=== PATIENT | male | born 1960 | race Caucasian/White ===

== ENCOUNTER 2019-08-09 00:42 | Day surgery (SDC) | payer MEDICARE, SELFPAY ==
[2019-07-26 15:40] VITALS: BMI 34.8
--- NOTE | 2019-08-08 06:22 | HP_ITS ---
DATE OF SERVICE: 08/09/2019 ADMITTING DIAGNOSIS: Rotator cuff tear, left shoulder. HISTORY OF PRESENT ILLNESS: The patient is a 59-year-old male patient of Dr. Gan, who presents today for left shoulder arthroscopy with mini-open rotator cuff repair of his left shoulder. He has been having symptoms in his left shoulder for the past 6 to 7 years, progressively worsening. He was initially evaluated by Dr. Vanegas in December 2018, at that time, he had an MRI scan that was done from the same month, which demonstrated pronounced thinning of the supraspinatus tendon and most likely a small thickness rotator cuff tear in the shoulder. He has been treating this nonsurgically over the course of last 6 months. Unfortunately, he has not had significant improvement of his symptoms. He still has pain on a regular basis and feels at this point, he would like to proceed with surgical intervention rather than continue nonsurgical treatment. The patient has had no previous surgeries. CURRENT MEDICATIONS: 1. Naprosyn 500 mg daily. 2. Losartan 100 mg daily. 3. Citalopram 40 mg daily. 4. Clonazepam 5 mg daily. 5. Pantoprazole 40 mg daily. 6. Simvastatin 40 mg daily. 7. Trazodone 50 mg q.h.s. 8. Zolpidem 10 mg daily. ALLERGIES: HE HAS NO KNOWN DRUG ALLERGIES. FAMILY HISTORY: Noncontributory. SOCIAL HISTORY: He has smoked in the past. He quit in 2000. SURGERIES: Noted above. Please note, he has had his appendix removed in the past and does have a history of diverticulitis. OBJECTIVE: VITAL SIGNS: He is 5 feet 11 inches, 264 pounds. His BMI is 36.9. Other vital signs per nursing on the morning of surgery. HEENT: Grossly normal. LUNGS: Clear bilaterally. HEART: Regular rate and rhythm. NEURO: His left shoulder, he has elevation of 180, external rotation 90, internal rotation is to T12 as well. He has mild weakness with both external rotation as well as abduction. He has minimal tenderness over the AC joint. No pain with adduction of the shoulder. He has a negative speed's maneuver. Negative belly press. Negative subscap lift-off on his left arm. Moderate tenderness over the supraspinatus tendon insertion. Biceps muscle has normal contour. Neck range of motion is full without discomfort. Negative Spurling's maneuver. 2+ radial pulse in his left wrist. IMAGING DATA: MRI scan again shows a fairly large area of bursal-sided partial-thickness tearing involving the posterior supraspinatus tendon and upper infraspinatus tendon with a small full-thickness tear laterally. There is thinning of the tendon diffusely. Mild atrophy of the infraspinatus muscle is noted. There is no edema or significant hypertrophic changes of the AC joint. IMPRESSION AND PLAN: The patient has had continued symptoms in his left shoulder, he has significant partial thickness and most likely a small full-thickness rotator cuff tear. Again, he would like to proceed with surgery. Surgical procedure as well as risks complications were discussed. All questions were answered and we will proceed. The patient will avoid his Naprosyn and any other aspirin and ibuprofen products 1 week prior to surgery. He will see his primary care doctor for presurgical clearance. Porfirio I MT: Monica
[2019-08-09] VITALS (7 sets, daily range): BP systolic 112–121; BP diastolic 63–81; PULSE 66–87; RESP 14–19; TEMP 36.1–36.2; O2SAT 92–96
[2019-08-09] MEDS: LACTATED RINGERS 1,000 ML 30 ML IV CONT ×2 (11:30→16:55)
--- NOTE | 2019-08-09 12:08 | WPDANESEPPF ---
Anes - Initial Pre Proc Eval Procedure: Operation Date: 08/09/19 12:30 Proposed Procedures p Left Shoulder Arthroscopy, Acromioplasty, Mini Open Rotator Cuff Repair, Possible Tissue Mend Patch, Proceed As Indicated - Levi Vanegas MD Date/Time: 08/09/19 12:08 Surgeon: Levi Vanegas MD Pre Op Diagnosis: Left Shoulder Rotator Cuff Tear Patient Data Age: 59 Gender: M Height: 5 ft 11 in Weight: 105.9 kg Last Vital Signs Temp 36.2 C L 08/09/19 11:30 Pulse 66 08/09/19 11:30 Resp 16 08/09/19 11:30 BP 120/73 08/09/19 11:30 Pulse Ox 95 08/09/19 11:30 Allergies Allergy/AdvReac Type Severity Reaction Status Date / Time No Known Allergies Allergy Mild Verified 08/09/19 11:58 Home Medications Medication Instructions Recorded Confirmed Type Cinnamon 1 cap PO DAILY 07/26/19 07/26/19 History baclofen 20 mg PO HS 07/26/19 07/26/19 History citalopram [Celexa] 40 mg PO DAILY 07/26/19 08/09/19 History clonazepam 0.5 mg PO DAILY PRN 07/26/19 08/09/19 History hydrocodone-acetaminophen [[place]] 1 tablet PO BID PRN 07/26/19 07/26/19 History latanoprost 1 drp OPHTHALMIC (EYE) HS 07/26/19 07/26/19 History losartan 50 mg PO QPM 07/26/19 07/26/19 History milk thistle 150 mg PO DAILY 07/26/19 07/26/19 History multivitamin 1 tablet PO DAILY 07/26/19 07/26/19 History naproxen 500 mg PO DAILY 07/26/19 07/26/19 History olanzapine 5 mg PO DAILY 07/26/19 08/09/19 History pantoprazole 40 mg PO HS 07/26/19 07/26/19 History simvastatin 40 mg PO DAILY 07/26/19 07/26/19 History trazodone 50 mg PO HS 07/26/19 07/26/19 History vitamin B complex 1 tablet PO DAILY 07/26/19 07/26/19 History zolpidem [Ambien] 5 - 10 mg PO HS 07/26/19 07/26/19 History Patient hx anesthesia problems: none Family hx anesthesia problems: none PMF Past Medical History Medical History Anxiety Bipolar 1 disorder GERD (gastroesophageal reflux disease) Hyperlipidemia Hypertension Family History Family History Other Family history of cardiovascular disease Family history of elevated blood lipids Social History Social History Alcohol intake: current Anes - Eval Final PreProcedure Day of Procedure 08/09/19 12:08 Patient weight: obese Heart: regular rate and rhythm Lungs: clear to auscultation Airway: Mallampati scale class II Neurological: alert and oriented Last oral intake: >/= 8 hours ASA classification: III Emergent: no Anesthetic plan: proceed Anesthesia type and monitoring: general ETT and standard monitoring Informed Consent: The patient's anesthetic plan and its attendant risks and benefits were discussed with the patient/family/POA. Questions were solicited and answers provided to the satisfaction of the patient/family/POA.
--- NOTE | 2019-08-09 12:18 | WPDHPUPDATE1 ---
History and Physical Update Update Date/Time: 08/09/19 12:18 History and Physical has been reviewed, including an updated exam of the patient. There are NO changes in the patient's condition. Risks, benefits, and alternatives have been discussed and questions answered. Patient agrees to proceed with procedure.
--- NOTE | 2019-08-09 12:45 | WPDANESPNB ---
Anes - Peripheral Nerve Block Date/Time: 08/09/19 12:45 I have discussed with the patient/family/POA the placement of a peripheral nerve block for post-operative pain management, including associated risks, benefits, complications, and side effects. Alternative methods of post-operative analgesia were detailed. Questions were solicited and answers provided to the satisfaction of the patient/family/POA. Time-Out: A pre-procedural Time-Out was completed immediately before starting the procedure and confirmed: Patient Identification, Site, Procedure, Patient Position and the Availability of Requisite Equipment. Clinical Indications: Acute post-operative pain management requested by the operative surgeon. Nerve Block Insertion Note Anes-nerve block: interscalene left Patient position: supine Skin prep: chlorhexidine Needle: 22 gauge, stimulating, insulated echogenic needle. Needle length: 50 mm Technique: ultrasound Technique comment: visualization poor. unable to visualize nerve roots. 30ml local placed in interscalene groove. Injectate: bupivacaine 0.5% with epi 5 mcg/ml (30ml) Observations: tolerated well Complications: none Procedure start time:: 1230 Procedure end time:: 1244
[2019-08-09] MEDS: ceFAZolin 2 GM/D5W 50 ML 2 GM/50 ML BAG IVPB (12:56)
[2019-08-09] MEDS: VANCOMYCIN HCL 1,000 MG VIAL 1000 MG XX (13:46)
[2019-08-09] MEDS: ceFAZolin SODIUM 1 GM VIAL IV PUSH (16:22)
--- NOTE | 2019-08-09 17:04 | PM.PROC ---
Procedure Note - Detailed Date of procedure: 08/09/19 Pre-op diagnosis: Left Shoulder Rotator Cuff Tear Post-op diagnosis: same Procedure performed: Arthroscopic labral debridement acromioplasty mini open rotator cuff repair left shoulder with repair augmentation using the arthro flex Decellularized dermis Description of procedure: Patient was brought to the operating room and the general anesthesia was administered. He received an interscalene block preoperatively. He received weight based vancomycin and 2 g of Ancef preoperatively. He was placed in the beach chair position the head secured in neutral alignment the left shoulder prepped draped usual fashion. His range of motion was normal. all the skin was covered with diabetics at the top portion. Posterior portal was placed into the glenohumeral joint. The articular surfaces looked normal except for moderate fibrillation of the anterior superior lateral aspect of the humeral head under where he had the rotator cuff tear. long of the biceps had a little bit of synovitis minutes under surface near the glenoid origin but the tendon itself looked completely normal. It was probed into the joint found to be without any fraying. The medial ajith of the biceps sling looked normal. the subscapularis looked normal. It was visualized at the insertion with the lever push test. The articular surface of glenoid looked normal. There was extensive fraying of the superior labrum anterior to posterior and this was debrided with a motorized shaver. The labrum was essentially membranous. Rotator cuff tear of the supraspinatus full thickness was viewed. Arthroscope placed in the subacromial space. was extensive fraying of the CA ligament and its attachment onto the anterior acromion. an anterior portal was placed. this was for outflow. The mid lateral portal place. the CA ligament was carefully ablated off the anterior acromion and a concern of an anterior acromioplasty removing about 3 mm of bone was performed using cutting block technique with the vortex bur in the posterior portal. The shoulder was covered with IO band however gloves were changed. A 2 inch longitudinal incision was made from the anterior superior acromion and the tendinous right FA was identified between the anterior middle heads of the deltoid and split for a distance of 40 0.5 cm. We elevated about 5 mm of deltoid off the anterior chromium and were additional exposure of the soft tissue attachments place 1st the tear was as seen on the previous MRI scan from last year. There is a full-thickness central portion and a more extensive high-grade partial thickness portion that Reamer with full thickness tear was surrounded by very thin tendinous tissue. the greater tuberosity footprint was carefully debrided. A 2 mm bur was made to make 1 mill used to make 1 mm dimples and then used to make per holes through the medial aspect of the greater tuberosity footprint adjacent to articular cartilage for later passing sutures. the tear extended medially about 2-1/2 cm [place] is after gently mobilizing the tendon edges releases deltoid distal adhesions and placing a stay suture in the anterior and the posterior flaps it became clear that the primary mode of reduction of the plate tear was going to be a [id number] closure. there was somewhat of an L configuration so the posterior flap which included much the supraspinatus and the infraspinatus tendons on was retracted not just posteriorly but somewhat medially to the side the side reduction occurred with some lateralization of the posterior flap well advancing it anteriorly and centrally complete closure of the rotator cuff tear was carried out by placing 4 2. Ethibonds in a [id number] fashion. even with healthy bites the tissue seemed to be abnormally thin. In the cm radius around the tear the tendon thickness increased screw 10 mm to 3 mm but much thinner than normal for this 59-year-old large male. Additional 5 2. Ethibonds were
== END 2019-08-09 18:30 | disposition home or self-care (01) ==
PROVIDERS: PCP Family Medicine; Visit Provider Orthopaedic Surgery
PROC: (CPT 29805; principal; 2019-08-09 12:30)
DX: M75.102 Unspecified rotator cuff tear or rupture of left shoulder, not specified as traumatic (principal); G89.18 Other acute postprocedural pain; I10 Essential (primary) hypertension; E78.5 Hyperlipidemia, unspecified; K21.9 Gastro-esophageal reflux disease without esophagitis; F41.8 Other specified anxiety disorders; F31.9 Bipolar disorder, unspecified; Z68.32 Body mass index [BMI] 32.0-32.9, adult
CPT/HCPCS: 23412; 29823; 64415; A4565; J0131; J0330; J0690; J1100; J1170; J2250; J2370; J2405; J2710; J3010; J3370; J7120

== ENCOUNTER 2022-01-25 19:06 | Emergency (ER) | payer MEDICARE, MEDICAID, SELFPAY ==
--- NOTE | ~2022-01-25 | CT_ITS ---
EXAMINATION: CT abdomen pelvis w con DATE: 01/25/2022 22:30 INDICATION: abdominal pain TECHNIQUE: Computed tomography (CT) of the abdomen and pelvis was performed with 100 mL Omnipaque-300 intravenous contrast. Automated exposure control and iterative reconstruction technique were employe d. The dose-length product was 1451.12 mGy-cm. COMPARISON: 08/26/2016.. FINDINGS: Lower thorax: Unremarkable Liver: Steatosis. Biliary/Gallbladder: Partially contracted gallbladder. No bile duct dilation. Pancreas: No mass or duct dilation. Spleen: Normal. Adrenals:No mass. Kidneys: Bilateral renal cortical scarring and perinephric stranding. Simple left renal cyst. GI tract: No small or large bowel dilation. Appendix not visualized Diverticulosis without diverticul itis. Mesentery/Peritoneum: No ascites, mass, or free air. Retroperitoneum: No mass. Atherosclerotic abdominal aortic and/or arterial calcifications. Pelvis: Distended bladder with mild wall thickening likely due to outlet compromise from prostatomega ly.. Soft Tissues: Small fat-containing bilateral inguinal hernias. Bones: No acute osseous finding. IMPRESSION: No acute abdominopelvic process detected. Reviewed, dictated and finalized at location K.
[2022-01-25 19:17] VITALS: BP 155/103; PULSE 77; RESP 18; TEMP 36.4; O2SAT 97
[2022-01-25 19:34] LABS: Basophils Absolute Auto 0.1 K/mm3 (0.0-0.1); Basophils Percent Auto 0.7 % (0.2-1.2); Eosinophils Absolute Auto 0.1 K/mm3 (0-0.3); Hematocrit 41.4 % (42.0-52.0); Hemoglobin 13.5 g/dL (14.0-18.0); Immature Granulocyte Absolute 0.02 K/mm3 (0.00-0.031); Immature Granulocyte Percent A 0.3 % (0-0.5); Lymphocytes Absolute Auto 3.16 K/mm3 (0.9-3.2); Lymphocytes Percent Auto 41.2 % (18.3-44.2); Mean Corpuscular HGB Conc 32.6 g/dl (32-36); Mean Corpuscular Hemoglobin 30.1 pg (26-34); Mean Corpuscular Volume 92.2 fl (80-100); Mean Platelet Volume 9.6 fl (7.4-10.4); Monocytes Absolute Auto 0.9 K/mm3 (0.1-0.6); Monocytes Percent Auto 11.9 % (2.6-8.5); Neutrophils Absolute Auto 3.5 K/mm3 (1.3-6.7); Neutrophils Percent Auto 44.9 % (45.5-73.1); Platelet Count Result 221 k/mm3 (150-375); Red Blood Count 4.49 M/mm3 (4.6-6.20); Red Cell Distribution Width 13.6 % (11.5-14.5); White Blood Count 7.7 K/mm3 (4.5-10.0)
[2022-01-25 19:38] LABS: Appearance Urine Clear (Clear); Bilirubin Urine Negative (Negative); Glucose Urine UA Negative (Negative); Ketones Urine Negative (Negative); Leukocyte Esterase Ur Negative LEU/UL (Negative); Nitrate Urine Negative (Negative); Protein Urine Negative (Negative); Urobilinogen Urine 0.2 mg/dL (<2.0)
[2022-01-25 19:42] LABS: Add Urine Microscopic? YES; Blood Urine Trace-Intact (Negative); Color Urine Light Yellow (Yellow)
[2022-01-25 19:43] LABS: Mucus Urine Rare /lpf; RBC Urine 0-2 /hpf (0-2); WBC Urine 0-3 /hpf
[2022-01-25 20:55] LABS: Alanine Aminotransferase 31 U/L (6-50); Albumin Level 4.4 g/dL (3.5-5.1); Alkaline Phosphatase 95 U/L (38-126); Anion Gap 6 mmol/L (8-16); Aspartate Amino Transferase 32 U/L (17-59); Bilirubin,Total 0.5 mg/dL (0.2-1.3); Blood Urea Nitrogen 14 mg/dL (9-20); Calcium 8.8 mg/dL (8.4-10.2); Carbon Dioxide 25 mmol/L (22-30); Chloride 106 mmol/L (98-107); Estimated CRCL calculation 101 ml/min; Estimated Glomerular Filt Rate > 60; Glucose 87 mg/dL (65-110); Lipase 132 U/L (23-300); Potassium 3.8 mmol/L (3.4-5.0); Sodium 137 mmol/L (137-145)
--- NOTE | 2022-01-25 21:09 | ED.GENADULT ---
HPI - General Adult General Chief complaint: Abdominal Pain Stated complaint: abd pain Time Seen by Provider: 01/25/22 20:33 History of Present Illness HPI narrative: Patient 61-year-old gentleman who presents the emergency department with chief complaint of abdominal pain. Patient reports has been going on for years and decided to come to the emergency department for evaluation patient has not seen a primary care provider denies vomiting denies diarrhea denies dysuria Related Data Home Medications Medication Instructions Recorded Confirmed Cinnamon 1 cap PO DAILY 07/26/19 07/26/19 baclofen 20 mg tablet 20 mg PO HS 07/26/19 07/26/19 citalopram 40 mg tablet (Celexa) 40 mg PO DAILY 07/26/19 08/09/19 clonazepam 0.5 mg tablet 0.5 mg PO DAILY PRN Anxiety 07/26/19 08/09/19 latanoprost 0.005 % eye drops 1 drp ophthalmic (eye) HS 07/26/19 07/26/19 losartan 50 mg tablet 50 mg PO QPM 07/26/19 07/26/19 milk thistle 150 mg capsule 150 mg PO DAILY 07/26/19 07/26/19 multivitamin 1 tablet PO DAILY 07/26/19 07/26/19 olanzapine 5 mg tablet 5 mg PO DAILY 07/26/19 08/09/19 pantoprazole 40 mg tablet,delayed 40 mg PO HS 07/26/19 07/26/19 release simvastatin 40 mg tablet 40 mg PO DAILY 07/26/19 07/26/19 trazodone 50 mg tablet 50 mg PO HS 07/26/19 07/26/19 vitamin B complex 1 tablet PO DAILY 07/26/19 07/26/19 zolpidem 10 mg tablet (Ambien) 5 - 10 mg PO HS 07/26/19 07/26/19 Allergies Allergy/AdvReac Type Severity Reaction Status Date / Time No Known Allergies Allergy Mild Verified 08/09/19 11:58 Review of Systems Review of Systems: A 10 system review of systems was completed on the patient and is negative except for what is stated in the HPI. Nursing and ancillary documentation was reviewed. [facility] Past Medical History Medical History (Updated 01/25/22 @ 23:04 by Mauricio Gutierrez MD) Anxiety Bipolar 1 disorder GERD (gastroesophageal reflux disease) Hyperlipidemia Hypertension Family History Family History Other Family history of cardiovascular disease Family history of elevated blood lipids Social History Social History Alcohol intake: current Exam Narrative: GENERAL: Well-appearing, well-nourished, and in no acute distress. HEAD: Normocephalic, atraumatic. EYES: PERRLA and EOMI. ENT: Nares clear, no rhinorrhea or epistaxis. Mucous membranes moist. NECK: Supple. CHEST: Clear to auscultation. No respiratory distress. HEART: Regular rate and rhythm. No murmur heard. Normal peripheral pulses. ABDOMEN: Soft, nontender, nondistended, normal active bowel sounds. EXTREMITIES: Normal range of motion. No edema. SKIN: Warm, dry, no rash. NEURO: No focal deficits. Alert and oriented x3. PSYCH: Normal mood and affect. Course Vital Signs Vital signs: Vital Signs Temperature 36.4 C 01/25/22 19:17 Pulse Rate 77 01/25/22 19:17 Respiratory Rate 18 01/25/22 19:17 Blood Pressure 155/103 H 01/25/22 19:17 Pulse Oximetry 97 01/25/22 19:17 Oxygen Delivery Room Air 01/25/22 19:17 Temperature 36.4 C 01/25/22 19:17 Pulse Rate 77 01/25/22 19:17 Respiratory Rate 18 01/25/22 19:17 Blood Pressure 155/103 H 01/25/22 19:17 Pulse Oximetry 97 01/25/22 19:17 Oxygen Delivery Room Air 01/25/22 19:17 Medical Decision Making Vital Signs Vital Signs: Vital Signs Temperature 36.4 C 01/25/22 19:17 Pulse Rate 77 01/25/22 19:17 Respiratory Rate 01/25/22 19:17 Blood Pressure 155/103 H 01/25/22 19:17 Pulse Oximetry 97 01/25/22 19:17 Oxygen Delivery Room Air 01/25/22 19:17 Temperature 36.4 C 01/25/22 19:17 Pulse Rate 77 01/25/22 19:17 Respiratory Rate 18 01/25/22 19:17 Blood Pressure 155/103 H 01/25/22 19:17 Pulse Oximetry 97 01/25/22 19:17 Oxygen Delivery Room Air 01/25/22 19:17 Lab Data Result diagrams:
[2022-01-26 00:18] VITALS: BP 140/95; PULSE 68; RESP 18; O2SAT 96
== END 2022-01-26 00:20 | disposition home or self-care (01) ==
PROVIDERS: Emergency Provider Emergency Medicine; PCP Family Medicine
DX: R10.84 Generalized abdominal pain (principal); F41.9 Anxiety disorder, unspecified; F31.9 Bipolar disorder, unspecified; K21.9 Gastro-esophageal reflux disease without esophagitis; I10 Essential (primary) hypertension; E78.5 Hyperlipidemia, unspecified
CPT/HCPCS: 36415; 74177; 80053; 81001; 83690; 85025; 99284; Q9967

== ENCOUNTER 2022-03-08 14:43 | Outpatient (CLI) | payer MEDICARE, MEDICAID, SELFPAY ==
--- NOTE | 2022-03-08 | ECG_ITS ---
Measurements Intervals [place] Rate: 71 P: -13 WA: 154 QRS: 17 QRSD: 97 T: 8 QT: 385 QTc: 420 Interpretive Statements SINUS RHYTHM COMPARED TO ECG 07/31/2019 14:36:29 NO SIGNIFICANT CHANGES Electronically Signed On 03-08-2022 20:30:48 CDT by Ibis Ingram M.D.
== END 2022-03-08 14:44 | disposition home or self-care (01) ==
PROVIDERS: PCP Family Medicine; Referring Provider Specialist; Visit Provider Family Medicine
DX: R07.89 Other chest pain (principal)
CPT/HCPCS: 93005

== ENCOUNTER 2022-11-26 16:39 | Emergency (ER) | payer MEDICARE, MEDICAID, SELFPAY ==
--- NOTE | ~2022-11-26 | CT_ITS ---
EXAMINATION: CT abdomen pelvis w con DATE: 11/26/2022 18:02 INDICATION: LUQ TTP TECHNIQUE: Computed tomography (CT) of the abdomen and pelvis was performed with 100 mL Omnipaque-350 intravenous contrast. Automated exposure control and iterative reconstruction technique were employe d. The dose-length product was 1891.43 mGy-cm. COMPARISON: 01/25/2022. FINDINGS: Lower thorax: Unremarkable Liver: Diffusely low density. Biliary/Gallbladder: Gallbladder is normal. No bile duct dilation. Pancreas: No mass or duct dilation. Spleen: Normal. Adrenals:No mass. Kidneys: Simple left midpole cyst. No hydronephrosis or suspicious mass. Mild bilateral perinephric s tranding and cortical scarring/lobulation. GI tract: No small or large bowel dilation. Appendix not visualized, likely surgically absent Diverti culosis without diverticulitis. Mesentery/Peritoneum: No ascites, mass, or free air. Retroperitoneum: No mass. Mild atherosclerotic abdominal aortic and/or arterial calcifications. Pelvis: Prostatomegaly. Distended urinary bladder with mild wall thickening, likely due to outlet com promise. Soft Tissues: Soft tissues and body wall unremarkable. Bones: No acute osseous finding. IMPRESSION: No acute abdominopelvic process detected. Reviewed, dictated and finalized at location K.
[2022-11-26 16:55] VITALS: BP 149/76; PULSE 79; RESP 16; TEMP 36.8; O2SAT 96
[2022-11-26 17:19] LABS: Appearance Urine Clear (Clear); Bilirubin Urine Negative (Negative); Blood Urine Negative (Negative); Color Urine Yellow (Yellow); Glucose Urine UA Negative (Negative); Ketones Urine Negative (Negative); Leukocyte Esterase Ur Negative LEU/UL (Negative); Nitrate Urine Negative (Negative); Protein Urine Negative (Negative); Specific Grav Ur 1.005 (1.001-1.035); Urobilinogen Urine 0.2 mg/dL (<2.0); pH Urine 6.5 (5.0-9.0)
[2022-11-26 17:20] LABS: Basophils Percent Auto 0.7 % (0.2-1.2); Eosinophils Absolute Auto 0.2 K/mm3 (0-0.3); Eosinophils Percent Auto 3.2 % (0-4.4); Hematocrit 40.1 % (42.0-52.0); Hemoglobin 13.8 g/dL (14.0-18.0); Immature Granulocyte Absolute 0.01 K/mm3 (0.00-0.031); Immature Granulocyte Percent A 0.2 % (0-0.5); Lymphocytes Absolute Auto 2.06 K/mm3 (0.9-3.2); Lymphocytes Percent Auto 34.2 % (18.3-44.2); Mean Corpuscular HGB Conc 34.4 g/dl (32-36); Mean Corpuscular Hemoglobin 30.4 pg (26-34); Mean Corpuscular Volume 88.3 fl (80-100); Mean Platelet Volume 8.8 fl (7.4-10.4); Monocytes Absolute Auto 0.8 K/mm3 (0.1-0.6); Monocytes Percent Auto 12.6 % (2.6-8.5); Neutrophils Percent Auto 49.1 % (45.5-73.1); Platelet Count Result 225 k/mm3 (150-375); Red Blood Count 4.54 M/mm3 (4.6-6.20); Red Cell Distribution Width 13.3 % (11.5-14.5)
--- NOTE | 2022-11-26 17:26 | ED.ABDPAIN ---
HPI - Abdominal Pain General Chief Complaint: Abdominal Pain Stated Complaint: upper abd pain Time Seen by Provider: 11/26/22 17:01 Source: patient Mode of arrival: ambulatory Limitations: no limitations History of Present Illness HPI narrative: This is a 62-year-old male with PMH of diverticulitis, anxiety and bipolar who presents to the ED with chief complaint of left upper and right upper quadrant abdominal pain x5 months. He states it feels like a spasm. States it is specifically worsened with stress. He reports associated tingling in the abdomen when it comes on. States he is under a lot of stress with his work and family. He said he talked to a family member who said he should go to the ER with this pain which is why he came today. Denies fevers, chills, nausea, vomiting, diarrhea, back pain, flank pain, headache, cough, shortness of breath, chest pain. Reports past surgical history of appendectomy. Related Data Home Medications Medication Instructions Recorded Confirmed Cinnamon 1 cap PO DAILY 07/26/19 07/26/19 baclofen 20 mg tablet 20 mg PO HS 07/26/19 07/26/19 citalopram 40 mg tablet (Celexa) 40 mg PO DAILY 07/26/19 08/09/19 clonazepam 0.5 mg tablet 0.5 mg PO DAILY PRN Anxiety 07/26/19 08/09/19 latanoprost 0.005 % eye drops 1 drp ophthalmic (eye) HS 07/26/19 07/26/19 losartan 50 mg tablet 50 mg PO QPM 07/26/19 07/26/19 milk thistle 150 mg capsule 150 mg PO DAILY 07/26/19 07/26/19 multivitamin 1 tablet PO DAILY 07/26/19 07/26/19 olanzapine 5 mg tablet 5 mg PO DAILY 07/26/19 08/09/19 pantoprazole 40 mg tablet,delayed 40 mg PO HS 07/26/19 07/26/19 release simvastatin 40 mg tablet 40 mg PO DAILY 07/26/19 07/26/19 trazodone 50 mg tablet 50 mg PO HS 07/26/19 07/26/19 vitamin B complex 1 tablet PO DAILY 07/26/19 07/26/19 zolpidem 10 mg tablet (Ambien) 5 - 10 mg PO HS 07/26/19 07/26/19 Allergies Allergy/AdvReac Type Severity Reaction Status Date / Time No Known Allergies Allergy Mild Verified 08/09/19 11:58 Review of Systems Review of Systems: CONSTITUTIONAL: Denies fever, chills, or sweats. EYES: Denies visual changes, redness, or discharge. ENT: Denies rhinorrhea, congestion, sore throat, or otalgia. CARDIOVASCULAR: Denies chest pain, palpitations, or edema. RESPIRATORY: Denies cough or dyspnea. GASTROINTESTINAL: Denies abdominal pain, nausea, vomiting, or diarrhea. GENITOURINARY: Denies dysuria or hematuria. SKIN: Denies rash or itching. MUSCULOSKELETAL: Denies back pain, joint pain, or myalgia. NEUROLOGIC: Denies headache, numbness, dizziness, or weakness. PSYCHIATRIC: Denies anxiety or depression. PENDING SALE TO [facility] Past Medical History Medical History (Updated 11/26/22 @ 18:43 by Carlos Dominguez PA-C) Anxiety Bipolar 1 disorder GERD (gastroesophageal reflux disease) Hyperlipidemia Hypertension Family History Family History Other Family history of cardiovascular disease Family history of elevated blood lipids Social History Social History Alcohol intake: current Exam Narrative: GENERAL: Well-appearing, well-nourished, and in no acute distress. HEAD: Normocephalic, atraumatic. EYES: PERRLA and EOMI. ENT: Nares clear, no rhinorrhea or epistaxis. Mucous membranes moist. Oropharynx without tonsillar hypertrophy exudate or other lesions. NECK: Supple. No adenopathy or masses. CHEST: No respiratory distress. Clear to auscultation. No wheezes rales or rhonchi HEART: Regular rate and rhythm. No murmur heard. Normal peripheral pulses. ABDOMEN: Obese abdomen. Mildly tender in the left upper quadrant. Soft, otherwise nontender, nondistended, normal active bowel sounds. Negative peritoneal signs. MSK: Normal range of motion. No edema. SKIN: Warm, dry, no rash. NEURO: Alert and oriented x3. No focal deficits. PSYCH: Normal mood and affect. Course Course Emergency [facility]
[2022-11-26 17:28] LABS: Alanine Aminotransferase 33 U/L (6-50); Albumin Level 4.3 g/dL (3.5-5.1); Alkaline Phosphatase 90 U/L (38-126); Anion Gap 8 mmol/L (8-16); Aspartate Amino Transferase 35 U/L (17-59); Bilirubin,Total 0.4 mg/dL (0.2-1.3); Blood Urea Nitrogen 15 mg/dL (9-20); Calcium 8.4 mg/dL (8.4-10.2); Carbon Dioxide 24 mmol/L (22-30); Chloride 106 mmol/L (98-107); Estimated CRCL calculation 113 ml/min; Estimated Glomerular Filt Rate > 60; Glucose 116 mg/dL (65-110); Lipase 128 U/L (23-300); Potassium 4.1 mmol/L (3.4-5.0); Sodium 138 mmol/L (137-145)
[2022-11-26 17:31] LABS: Add Urine Microscopic? NO
[2022-11-26] MEDS: MORPHINE SULFATE (*CRX) 4 MG/ML INJ IV PUSH (18:05)
== END 2022-11-26 19:07 | disposition home or self-care (01) ==
PROVIDERS: Emergency Medicine; Emergency Provider Physician Assistant; PCP Family Medicine
DX: R10.12 Left upper quadrant pain (principal); I10 Essential (primary) hypertension; E78.5 Hyperlipidemia, unspecified; F31.9 Bipolar disorder, unspecified; F41.9 Anxiety disorder, unspecified; K21.9 Gastro-esophageal reflux disease without esophagitis; Z79.82 Long term (current) use of aspirin
CPT/HCPCS: 36415; 74177; 80053; 81003; 83690; 85025; 96374; 99284; J2270; Q9967

== ENCOUNTER 2024-08-28 15:50 | Emergency (ER) | payer MEDICARE, SELFPAY ==
[2024-08-28 16:45] VITALS: BP 105/62; PULSE 79; RESP 18; TEMP 37.3; O2SAT 97
[2024-08-28 17:15] LABS: EDCOVIDSCREEN Negative (Negative); EDINFLUASCREEN Negative (Negative); EDINFLUBSCREEN Negative (Negative)
--- NOTE | 2024-08-28 17:34 | ED.SKABFB ---
HPI - Skin/Abscess/Foreign Bdy General Chief complaint: Upper Respiratory Infection Stated complaint: Skin Rash Time Seen by Provider: 08/28/24 17:34 Source: patient, RN notes reviewed and old records reviewed Mode of arrival: ambulatory Limitations: no limitations History of Present Illness HPI narrative: Patient presents with complaints of generalized hives for about 3 weeks. He reports that he has been under a lot of stress over the past several weeks. Parents have been in failing health. He does report that he had an episode similar to this is a teenager, has not had any similar episodes since. He reports that he has been taking Benadryl intermittently without much relief. He also states that he has a little bit afraid of flu and COVID, as he has had a hacking cough for couple of days. He reports that hacking cough is more worrisome to him that bothersome. Related Data Home Medications ?Medication ?Instructions ?Recorded ?Confirmed ?Last Taken ?Type baclofen 20 mg tablet 20 mg PO HS 07/26/19 07/26/19 Unknown History citalopram 40 mg tablet (Celexa) 40 mg PO DAILY 07/26/19 08/09/19 08/09/19 10:00 History clonazepam 0.5 mg tablet 0.5 mg PO DAILY PRN Anxiety 07/26/19 08/09/19 08/09/19 10:00 History latanoprost 0.005 % eye drops 1 drp ophthalmic (eye) HS 07/26/19 07/26/19 Unknown History losartan 50 mg tablet 50 mg PO QPM 07/26/19 07/26/19 Unknown History milk thistle 150 mg capsule 150 mg PO DAILY 07/26/19 07/26/19 Unknown History multivitamin 1 tablet PO DAILY 07/26/19 07/26/19 Unknown History olanzapine 5 mg tablet 5 mg PO DAILY 07/26/19 08/09/19 08/09/19 10:00 History pantoprazole 40 mg tablet,delayed 40 mg PO HS 07/26/19 07/26/19 Unknown History release simvastatin 40 mg tablet 40 mg PO DAILY 07/26/19 07/26/19 Unknown History trazodone 50 mg tablet 50 mg PO HS 07/26/19 07/26/19 Unknown History vitamin B complex 1 tablet PO DAILY 01/17/20 01/17/20 Unknown History zolpidem 10 mg tablet (Ambien) 5 - 10 mg PO HS 07/26/19 07/26/19 Unknown History Allergies Allergy/AdvReac Type Severity Reaction Status Date / Time No Known Allergies Allergy Mild Verified 08/28/24 16:27 Review of Systems Review of Systems: All systems reviewed & are unremarkable except as noted in HPI and below Constitutional: Constitutional: Reports no additional constitutional complaints ENT: Reports system reviewed and no additional complaints, except as documented Cardiovascular: Cardiovascular: Reports no additional cardiovascular complaints Respiratory: Respiratory: Reports no additional respiratory complaints Gastrointestinal: Gastrointestinal: Reports no additional gastrointestinal complaints [facility] Past Medical History Medical History (Updated 08/29/24 @ 00:01 by Ton Berman) Bipolar 1 disorder Anxiety GERD (gastroesophageal reflux disease) Hypertension Hyperlipidemia Family History Family History Other Family history of cardiovascular disease Family history of elevated blood lipids Social History Social History Alcohol intake: current Comments At the time of my signature, I reviewed and agree with the nursing past medical, surgical, social, and family history. There is no relevant family history pertinent to the patient complaint. Exam Const: General: cooperative, no acute distress, alert and awake Orientation/consciousness: oriented to person, oriented to place and oriented to time HENMT: Head: normal to inspection Resp: Effort & Inspection: normal respiratory effort and able to speak in complete sentences Auscultation: clear to auscultation bilaterally, no crackles, no rales, no rhonchi and no wheezes Cardio: Palpation: normal PMI Rate: regular rate Rhythm: regular rhythm Heart sounds: S1 normal heart sound present and S2 normal heart sound present Skin: Rashes: rashes noted urticaria multiple locations Neuro: General: oriented to person, oriented to place and oriented to time Cranial nerves: Yes CN's II-XII intact bilaterally Psych: Appearance: grossly normal Thought process: Normal thought process present Insight: Good insight present (Psych) Judgement: Good judgement present (Psych) Course Course Level of Care: Express Care Visit Vital Signs Vital signs: Vital Signs Temperature 99.1 F 08/28/24 16:45 Pulse Rate 79 08/28/24 16:45 Respiratory Rate 18 08/28/24 16:45 Blood Pressure 105/62 08/28/24 16:45 Pulse Oximetry 97 08/28/24 16:45 Oxygen Delivery Room Air 08/28/24 16:45 Temperature 99.1 F 08/28/24 16:45 Pulse Rate 79 08/28/24 16:45 Respiratory Rate 18 08/28/24 16:45 Blood Pressure 105/62 08/28/24 16:45 Pulse Oximetry 97 08/28/24 16:45 Oxygen Delivery Room Air 08/28/24 16:45 Reviewed MDM - Skin/Abscess/Foreign Bdy MDM Narrative Medical decision making narrative: Patient with fairly generalized hives that he states been present for about 3 weeks. He is not in any distress, including respiratory distress. He does report that he had something similar happen several years ago when he was under a lot of stress, reports that he has been very stressed out as of late. 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 Discharge instructions reviewed with patient, as well as provided in writing per nursing staff. The instructions also include specific and strict return/GO TO THE ER as well as f/u information. All questions have been answered, and the patient deny any further questions with discharge and discharge plan. Some parts of this dictation were generated by voice recognition software and may contain typographical and/or grammatical inaccuracies. Differential Diagnosis Differential diagnosis: Likely urticaria, allergic reaction to drug, cellulitis, eczema, insect bites and contact dermatitis Medical Records Attestation: I reviewed the patient's medical records. Lab Data Labs: Lab Results 08/28/24 Range/Units 16:40 POC Influenza A Ag Negative (Negative) POC Influenza B Ag Negative (Negative) POC SARS CoV-2 Ag Negative (Negative) Discharge Plan Discharge Clinical Impression: Urticaria Patient Disposition: Home, Self-Care Condition: Stable Instructions: Antibiotic Form, Urticaria (ED) Additional Instructions: Take medications as prescribed. Follow with primary care provider. Emergency department for any new worse symptoms Patient Language: [place] Prescriptions: New prednisone 50 mg tablet 50 mg PO DAILY Qty: 5 0RF hydroxyzine HCl 50 mg tablet 50 mg PO TID PRN (Reason: itching) Qty: 30 0RF mometasone 0.1 % cream 1 applic topical DAILY PRN (Reason: itching) Qty: 45 0RF No Action losartan 50 mg Tablet 50 mg PO QPM latanoprost 0.005 % drops 1 drp ophthalmic (eye) HS citalopram [Celexa] 40 mg Tablet 40 mg PO DAILY trazodone 50 mg Tablet 50 mg PO HS clonazepam 0.5 mg Tablet 0.5 mg PO DAILY PRN (Reason: Anxiety) olanzapine 5 mg Tablet 5 mg PO DAILY simvastatin 40 mg Tablet 40 mg PO DAILY baclofen 20 mg Tablet 20 mg PO HS pantoprazole 40 mg Tablet,Delayed Release (Dr/Ec) 40 mg PO HS zolpidem [Ambien] 10 mg Tablet 5 - 10 mg PO HS multivitamin Tablet 1 tablet PO DAILY milk thistle 150 mg Capsule 150 mg PO DAILY vitamin B complex Tablet 1 tablet PO DAILY oxycodone-acetaminophen 5-325 mg tablet 1 - 2 tablet PO Q4H PRN (Reason: pain) Qty: 60 0RF Senna Plus 8.6-50 mg capsule 1 tab-cap PO BID Qty: 120 0RF polyethylene glycol 3350 [Miralax] 17 gram powder in packet 17 gm PO DAILY Qty: 30 0RF aspirin 325 mg tablet,delayed release (DR/EC) 325 mg PO BID Qty: 60 0RF Follow-up/Referrals: Malik,Sulaiman Gray MD [Primary Care Provider] - 2 Weeks Time of Disposition: 17:48
== END 2024-08-28 17:55 | disposition home or self-care (01) ==
PROVIDERS: Emergency Provider Nurse Practitioner Family; PCP Family Medicine
DX: L50.9 Urticaria, unspecified (principal); Z20.822 Contact with and (suspected) exposure to COVID-19; I10 Essential (primary) hypertension; E78.5 Hyperlipidemia, unspecified; K21.9 Gastro-esophageal reflux disease without esophagitis; F41.9 Anxiety disorder, unspecified
CPT/HCPCS: 87426; 87804; 99213; G0463